=== PATIENT | male | born 1985 | race Caucasian/White ===

== ENCOUNTER 2019-09-29 11:26 | Emergency (ER) | payer BC ==
[2019-09-29] MEDS ORDERED: IBUPROFEN 600 MG TABLET (FP) PO ONE ×2 (11:45→11:48)
--- NOTE | 2019-09-29 11:48 | PDOC ---
History of Present Illness - General Chief Complaint: Injury Stated Complaint: FALL Time Seen by Provider: 09/29/19 11:35 History Source: Patient Exam Limitations: No Limitations - History of Present Illness Initial Comments: 09/29/19 11:46 HISTORY OF PRESENT ILLNESS: 34-year-old male presents emergency department for evaluation of left ankle pain for 1 day. Patient reports he was at a wedding yesterday and after consumption of alcohol had multiple falls that he does not remember. Patient woke up this morning and noted to have pain to the ankle does not been walking. No recent travel or sick contacts. PAST MEDICAL HISTORY: Denies past medical history SURGICAL HISTORY: Denies ALLERGIES: No known drug allergies REVIEW OF SYSTEMS General/Constitutional: Denies fever or chills. Denies weakness, weight change. HEENT: Denies change in vision. Denies ear pain or discharge. Denies sore throat. Cardiovascular: Denies chest pain or shortness of breath. Respiratory: Denies cough, wheezing, or hemoptysis. Gastrointestinal: Denies nausea, vomiting, diarrhea or constipation. Denies rectal bleeding. Genitourinary: Denies dysuria, frequency, or change in urination. Musculoskeletal: See HPI Skin and breasts: Denies rash or easy bruising. Neurologic: Denies headache, vertigo, loss of consciousness, or loss of sensation. Psychiatric: Denies depression or anxiety. Endocrine: Denies increased thirst. Denies abnormal weight change. Hematologic/Lymphatic: Denies anemia, easy bleeding, or history of blood clots. Allergic/Immunologic: Denies hives or skin allergy. Denies latex allergy. PHYSICAL EXAM General Appearance: Well-appearing, appropriately dressed. No apparent distress , no intoxication. Gastrointestinal/Abdominal: Normal bowel sounds. Abdomen soft, non-distended. No tenderness or rebound tenderness. No organomegaly, pulsatile mass, guarding, hernia, hepatomegaly, splenomegaly. Lymphatic: No adenopathy, tenderness. Musculoskeletal/Extremities: Normal inspection. FROM of all extremities, normal capillary refill. Pelvis Stable. No CVA tenderness. No tenderness to extremities, pedal edema, swelling, erythema or deformity. Neurovascularly intact. Integumentary: Appropriate color, dry, warm. No cyanosis, erythema, jaundice or rash Past History - Past Medical History Allergies/Adverse Reactions: Allergies Allergy/AdvReac Type Severity Reaction Status Date / Time No Known Allergies Allergy Verified 09/29/19 11:50 COPD: No - Psycho Social/Smoking Cessation Hx Smoking History: Never smoked *Physical Exam - Vital Signs Last Vital Signs Temp Pulse Resp BP Pulse Ox 97 F L 106 H 18 141/74 99 09/29/19 11:31 09/29/19 11:31 09/29/19 11:31 09/29/19 11:31 09/29/19 11:31 Medical Decision Making - Medical Decision Making 09/29/19 11:47 A/P: 34-year-old male with left ankle pain status post multiple falls after alcohol consumption on 09/28 Physical exam is unremarkable Most likely sprain but will get an x-ray to confirm no fracture. Motrin 600 mg orally Reassess 09/29/19 12:05 X-rays as read by me: No acute fractures or dislocations present. Aircast Crutches Discharge home with orthopedic follow-up. 09/29/19 12:07 Patient is demanding stronger pain medication than Tylenol or Motrin for his ankle pain. Patient was offered Toradol upon initial evaluation but refused. Patient is refusing discharge until "I get drugs." 09/29/19 12:09 09/29/19 12:11 Discharge - Discharge Information Problems reviewed: Yes Clinical Impression/Diagnosis: Left ankle sprain Qualifiers: Encounter type: initial encounter Involved ligament of ankle: unspecified ligament Qualified Code(s): S93.402A - Sprain of unspecified ligament of left ankle, initial encounter Condition: Stable Disposition: HOME - Admission No - Follow up/Referral Referrals: Syed Souza MD [Staff Physician] - - Patient Discharge Instructions Additional Instructions: You have been given a referral for an orthopedist. Call to schedule appointment for reevaluation of your pain. Your emergency department visit is incomplete until you follow-up with your regular doctor. Take Tylenol 2-500 mg tablets every 6 hours as needed for pain. Take Motrin 3-200 mg tablets every 6 hours as needed for pain. These medications do not require a prescription as they are [id number]. Apply ice to affected areas to help relieve pain. Do not leave ice on for more than 20 minutes at a time. Return to the emergency department for any new or worsening symptoms. Thank you very much for choosing us to provide your emergent health care needs. - Post Discharge Activity Work/Back to School Note: Back to Work
[2019-09-29 11:51] VITALS: BP 141/74; PULSE 106; TEMP 97; BMI 30.4
== END 2019-09-29 12:26 | disposition home or self-care (01) ==
LOC: JERFT 11:26
DX: S93.402A Sprain of unspecified ligament of left ankle, initial encounter (principal); W19.XXXA Unspecified fall, initial encounter; Y93.89 Activity, other specified; Y92.89 Other specified places as the place of occurrence of the external cause; Y99.8 Other external cause status; F10.10 Alcohol abuse, uncomplicated
CPT/HCPCS: 73610-TC-LT-FY; 73630-TC-LT; 99283-25